=== PATIENT | male | born 1965 | race Caucasian/White ===

== ENCOUNTER 2023-11-05 14:35 | Outpatient (OUT) | payer OTHER, SELFPAY ==
--- NOTE | 2023-11-05 | XR_ITS ---
The [address] [address] Patient Name: AMISH HOLCOMB MRN: [id number] date: 1965 Sex: M Assigned Patient Location: Current Patient Location: Accession/Order Number: [id number] Exam Date: 11/05/2023 14:49 Report Date: 11/05/2023 16:17 At the request of: LEA HARRISON Procedure: XR foot CHARMAINE min 3V EXAMINATION: XR foot CHARMAINE min 3V HISTORY: BILATERAL FOOT PAIN COMPARISON: No relevant comparison available. FINDINGS: RIGHT FINDINGS: BONES: Normal. No significant arthropathy or acute abnormality. SOFT TISSUES: Negative. No visible soft tissue swelling. OTHER: Negative. LEFT FINDINGS: BONES: Normal. No significant arthropathy or acute abnormality. SOFT TISSUES: Negative. No visible soft tissue swelling. OTHER: Negative. XR/XR foot CHARMAINE min 3V IMPRESSION: RIGHT CONCLUSION: Normal LEFT CONCLUSION: Normal Electronically authenticated by: EVAN QUINTERO Date: 11/05/2023 16:17
== END 2023-11-05 14:36 | disposition home or self-care (01) ==
PROVIDERS: PCP Family Medicine; Visit Provider Podiatrist Foot & Ankle Surgery
DX: M79.671 Pain in right foot (principal); M79.672 Pain in left foot
CPT/HCPCS: 73630

== ENCOUNTER 2024-05-30 08:09 | Outpatient (OUT) | payer OTHER, SELFPAY ==
[2024-05-30 09:09] LABS: Basophils Absolute Auto 0.1 10^3/uL (0.0-0.1); Basophils Percent Auto 1.2 % (0.2-2.0); Eosinophils Absolute Auto 0.2 10^3/uL (0.0-0.7); Eosinophils Percent Auto 3.9 % (0.9-7.0); Hematocrit 50.5 % (42.0-54.0); Hemoglobin 17.3 g/dL (14.0-18.0); Immature Granulocytes Abs Auto 0.01 10^3/uL (0.00-0.03); Immature Granulocytes Pct Auto 0.2 % (0.0-0.5); Lymphocytes Absolute Auto 2.3 10^3/uL (1.2-3.8); Lymphocytes Percent Auto 44.3 % (20.5-60.0); Mean Corpuscular HGB Conc 34.3 g/dL (29.9-35.2); Mean Corpuscular Hemoglobin 30.8 pg (25.9-34.0); Mean Corpuscular Volume 89.9 fL (80.0-94.0); Mean Platelet Volume 11.2 fL (9.5-13.5); Monocytes Absolute Auto 0.6 10^3/uL (0.3-0.8); Neutrophils Percent Auto 39.4 % (43.0-75.0); Platelet Count 269 10^3/uL (150-450); Red Blood Count 5.62 10^6/uL (4.70-6.10); White Blood Count 5.1 10^3/uL (4.0-11.0)
[2024-05-30 09:23] LABS: Alanine Aminotransferase 35 U/L (16-63); Albumin Globulin Ratio 0.9; Albumin Level 3.8 g/dL (3.4-5.0); Alkaline Phosphatase 81 U/L (46-116); Anion Gap 15.1; Aspartate Amino Transferase 19 U/L (15-37); BUN Creatinine Ratio 17.3; Bilirubin Total 0.4 mg/dL (0.2-1.0); Calcium 9.3 mg/dL (8.5-10.1); Carbon Dioxide 27.1 mmol/L (21.0-32.0); Chloride 105 mmol/L (98-107); Chol HDL Ratio 5.4; Cholesterol 268 mg/dL (<=200); Estimated GFR (African America >60 (>=60 mL/min/1.73m^2); Estimated GFR (Non-African Ame >60 (>=60 mL/min/1.73m^2); Globulin 4.1 g/dL; Glucose 92 mg/dL (74-106); HDL Cholesterol 50 mg/dL (40-60); Potassium 4.2 mmol/L (3.5-5.1); Sodium 143 mmol/L (136-145); Total Protein 7.9 g/dL (6.4-8.2); Triglycerides 120 mg/dL (<=150)
[2024-05-30 10:04] LABS: Prostate Specific Antigen Scrn 0.71 ng/mL (<=4.00)
== END 2024-05-30 08:10 | disposition home or self-care (01) ==
PROVIDERS: PCP Family Medicine; Visit Provider Family Medicine
DX: Z00.00 Encounter for general adult medical examination without abnormal findings (principal); I10 Essential (primary) hypertension; M19.90 Unspecified osteoarthritis, unspecified site; Z12.5 Encounter for screening for malignant neoplasm of prostate
CPT/HCPCS: 36415; 80053; 80061; 85025; G0103

== ENCOUNTER 2025-06-25 10:11 | Observation (INO) | payer OTHER, SELFPAY ==
[2025-06-25] VITALS (38 sets, daily range): BP systolic 135–224; BP diastolic 76–118; PULSE 60–84; TEMP 36.6–36.9; O2SAT 92–96; BMI 28.3
--- NOTE | 2025-06-25 | XR_ITS ---
The [address] [address] Patient Name: AIMSH HOLCOMB MRN: [id number] date: 1965 Sex: M Assigned Patient Location: MS Current Patient Location: MS Accession/Order Number: [id number] Exam Date: 06/25/2025 14:02 Report Date: 06/25/2025 14:13 At the request of: CALLIE GRIER MD Procedure: XR foreign body eye CHARMAINE XR foreign body eye CHARMAINE 06/25/2025 2:07 PM SIGNS AND SYMPTOMS: ^Foreign body eye for MRI \S.br\ PROTOCOL: Frontal and lateral radiographs of the orbits COMPARISON: None FINDINGS: There is a 3 mm radiodense foreign body along the left zygomatic arch. No abnormal radiopaque foreign body is noted in the region of the orbits. The visualized paranasal sinuses are well aerated. XR/XR foreign body eye CHARMAINE IMPRESSION: There is a 3 mm radiodense foreign body along the left zygomatic arch. No abnormal radiopaque foreign body is noted in the region of the orbits. Impression dictated by: Dano Arana M.D. 06/25/2025 2:13 PM Dictation Location: [place] [address] Electronically authenticated by: [id number] Y Date: 06/25/2025 14:13
--- NOTE | 2025-06-25 10:28 | ECG_ITS ---
The [facility] Test Date: 2025-06-25 Pat Name: AMISH HOLCOMB Department: Room: - Gender: Male [employer]: : 1965 Requested By: [id number] Order Number: [id number] Reading MD: BILLY GARIBAY M.D. Measurements Intervals [place] Rate: 79 P: 45 FL: 166 QRS: 31 QRSD: 150 T: 0 QT: 396 QTc: 430 Interpretive Statements 1100 Sinus rhythm 2450 Right bundle branch block 4164 Twave abnormality, possible anterior ischemia 6220 Possible left atrial enlargement 9150 abnormal ECG No previous ECG available for comparison Electronically Signed On 06-25-2025 21:54:44 EST by BILLY GARIBAY M.D.
--- NOTE | 2025-06-25 10:29 | XR_ITS ---
The [place] [id number] Patient Name: AMISH HOLCOMB MRN: [id number] date: 1965 Sex: M Assigned Patient Location: ED.MAIN Current Patient Location: ED.MAIN Accession/Order Number: [id number] Exam Date: 06/25/2025 10:41 Report Date: 06/25/2025 10:52 At the request of: CALLIE GRIER MD Procedure: XR chest 1V Single view chest: CLINICAL HISTORY: poss cva COMPARISON: None FINDINGS: The heart is normal in size. The lungs are clear. The pulmonary vasculature is normal. Mediastinum and hilar regions are unremarkable. No pleural effusions are seen. Visualized bones are intact. XR/XR chest 1V IMPRESSION: NO ACUTE PROCESS. Impression dictated by: Blaze Stewart Jr., D.OAraseli 06/25/2025 10:52 AM Dictation Location: [place] [address] Electronically authenticated by: [id number] Y Date: 06/25/2025 10:52
--- NOTE | 2025-06-25 10:32 | CT_ITS ---
The [address] [address] Patient Name: AMISH HOLCOMB MRN: [id number] date: 1965 Sex: M Assigned Patient Location: ED.MAIN Current Patient Location: ER Accession/Order Number: [id number] Exam Date: 06/25/2025 10:41 Report Date: 06/25/2025 10:54 At the request of: CALLIE GRIER MD Procedure: CT head/brain wo con CT BRAIN WITHOUT CONTRAST: CLINICAL HISTORY: Aphasia yesterday for a few minutes COMPARISON: None cortical atrophy with chronic microvascular ischemic changes. TECHNIQUE: Contiguous axial unenhanced images were obtained through the brain. This CT exam was performed using one or more following dose reduction techniques: Automated exposure control, adjustment of the mA and/or kV according to patient size, or use of iterative reconstruction technique. FINDINGS: There is no evidence of midline shift, intra or extra-axial fluid collection, hemorrhage or CT evidence of stroke. Focal area of encephalomalacia involving the right occipital lobe suggestive of prior infarct. Posterior fossa appears unremarkable. Visualized intraorbital contents demonstrate no acute findings. Visualized paranasal sinuses are clear. The surrounding soft tissues are normal. CT/CT head/brain wo con IMPRESSION: NO ACUTE INTRACRANIAL ABNORMALITY. Impression dictated by: Blaze Stewart Jr., D.OAraseli 06/25/2025 10:54 AM Dictation Location[facility] Electronically authenticated by: [id number] Y Date: 06/25/2025 10:54
--- NOTE | 2025-06-25 10:32 | ED_ITS ---
HPI HPI - General Adult General Chief complaint: Recheck/Abnormal Lab/Rx Stated complaint: headache, confusion- last night Time Seen by Provider: 06/25/25 10:17 Source: patient Mode of arrival: walk-in History of Present Illness HPI narrative: 59-year-old male presented for an episode of aphasia that lasted for just a few minutes about 6:30 PM last night. At that time he had a headache which went away after some Tylenol. At no point did he have any motor weakness in his arms or legs or any sensory deficits. Nothing like this has happened before. He has a history of hypertension but does not take his medication. He did take it this morning. No fever or vomiting. Related Data Home Medications ?Medication ?Instructions ?Recorded ?Confirmed amlodipine 10 mg tablet 10 mg PO DAILY 06/25/2512/13 Allergies Allergy/AdvReac Type Severity Reaction Status Date / Time No Known Drug Allergies Allergy Verified 06/25/25 10:21 Review of Systems ROS Narrative A ten point review of systems is negative except as noted above. [facility] Medical History (Updated 06/25/25 @ 13:14 by Jack Page MD) HTN (hypertension) ?I10 - Essential (primary) hypertension (ICD-10) Social History Little interest or pleasure in doing things: not at all Feeling down, depressed, or hopeless: not at all Exam Narrative Exam Narrative: Nurses note and vital signs reviewed General:The patient appears well and in no apparent distress.Patient is resting comfortably on cart. Skin:Warm, dry, no pallor noted.There is no rash noted. Head:Normocephalic, atraumatic Eye: Normal conjunctiva, no drainage, EOMI. PERRL Ears, Nose, Mouth, and Throat: oral mucosa is moist. Nares patent. Cardiovascular:Regular Rate and Rhythm Respiratory:Patient is in no distress, no accessory muscle use, lungs are clear to auscultation, no wheezing, rales or rhonchi Back:non-tender GI: Soft and nontender Musculoskeletal: The patient has no evidence of calf tenderness, no pitting edema, symmetrical pulses noted bilaterally Neurological:A&O x4, normal speech; upper and lower extremity strength 5 out of 5 and symmetric. Sensation intact Psychiatric:Cooperative NIH score is 0 Constitutional Vital Signs, click to edit/add: Last Vital Signs Temp 98.5 F 06/25/25 10:16 Pulse 69 06/25/25 12:40 Resp 16 06/25/25 12:40 BP 156/95 H 06/25/25 12:30 Pulse Ox 93 L 06/25/25 12:40 O2 Del Method Room Air 06/25/25 10:42 Course Vital Signs Vital signs: Vital Signs Temperature 98.5 F 06/25/25 10:16 Pulse Rate 83 06/25/25 10:16 Respiratory Rate 18 06/25/25 10:16 Blood Pressure 224/108 H 06/25/25 10:16 Pulse Oximetry 95 06/25/25 10:16 Oxygen Delivery Method Room Air 06/25/25 10:16 Temperature 98.5 F 06/25/25 10:16 Pulse Rate 69 06/25/25 12:40 Respiratory Rate 16 06/25/25 12:40 Blood Pressure 156/95 H 06/25/25 12:30 Pulse Oximetry 93 L 06/25/25 12:40 Oxygen Delivery Method Room Air 06/25/25 10:42 Medical Decision Making [facility] Narrative Medical decision making narrative: The patient presented after having an episode of expressive aphasia yesterday. CT and CTA head and neck do not show any hemorrhage or critical stenosis. I spoke to the stroke team at [facility] who recommends admission here with aspirin and Plavix and an MRI and any further stroke workup that is needed. The patient did have an elevated blood pressure and he was given a small dose of labetalol which had good effect on his blood pressure. He is being admitted. Findings are discussed thoroughly with the patient and his . Differential Diagnosis Differential Diagnosis: CVA, TIA, hemorrhagic stroke, uncontrolled hypertension Lab Data Lab results reviewed: Yes I reviewed the patient's lab results Labs: Lab Results 06/25/25 Range/Units 10:33 WBC 5.6 (4.0-11.0) 10^3/uL RBC 5.73 (4.70-6.10) 10^6/uL Hgb 17.7 (14.0-18.0) g/dL Hct 50.9 (42.0-54.0) % MCV 88.8 (80.0-94.0) fL MCH 30.9 (25.9-34.0) pg MCHC 34.8 (29.9-35.2) g/dL RDW 12.1 (11.0-15.0) % Plt Count 265 (150-450) 10^3/uL MPV 10.7 (9.5-13.5) fL Neut % (Auto) 47.6 (43.0-75.0) % Lymph % (Auto) 36.7 (20.5-60.0) % [place] % (Auto) 12.0 (1.7-12.0) % Eos % (Auto) 2.2 (0.9-7.0) % Baso % (Auto) 1.3 (0.2-2.0) % Neut # (Auto) 2.7 (1.4-6.5) 10^3/uL Lymph # (Auto) 2.1 (1.2-3.8) 10^3/uL [place] # (Auto) 0.7 (0.3-0.8) 10^3/uL Eos # (Auto) 0.1 (0.0-0.7) 10^3/uL Baso # (Auto) 0.1 (0.0-0.1) 10^3/uL Abs Immat Gran (auto) 0.01 (0.00-0.03) 10^3/uL Imm/Tot Granulo (auto) 0.2 (0.0-0.5) % Sodium 141 (136-145) mmol/L Potassium 3.8 (3.5-5.1) mmol/L Chloride 102 (98-107) mmol/L Carbon Dioxide 29.2 (21.0-32.0) mmol/L Anion Gap 13.6 BUN 11.0 (7.0-18.0) mg/dL Creatinine 0.85 (0.70-1.30) mg/dL Est GFR ( Amer) >60 (>=60 mL/min/1.73m^2) Est GFR (Non-Af Amer) >60 (>=60 mL/min/1.73m^2) BUN/Creatinine Ratio 12.9 Glucose 92 (74-106) mg/dL Calcium 9.5 (8.5-10.1) mg/dL Imaging Data CT scan - head: Radiologist's impression: ITS Impressions Chest X-Ray 06/25/25 10:29 IMPRESSION: NO ACUTE PROCESS. Impression dictated by: Blaze Stewart Jr., D.O. 06/25/2025 10:52 AM Dictation Location: [facility] Electronically authenticated by: [id number] Y Date: 06/25/2025 10:[address] 06/25/25 10:32 IMPRESSION: NO ACUTE INTRACRANIAL ABNORMALITY. Impression dictated by: Blaze Stewart Jr., D.O. 06/25/2025 10:54 AM Dictation Location: [facility] Electronically authenticated by: [id number] Y Date: 06/25/2025 10:54 Head CTA 06/25/25 10:54 IMPRESSION: Moderate narrowing M1 segment left MCA. Please see axial image 139. Impression dictated by: Blaze Stewart Jr., D.O. 06/25/2025 12:14 PM Dictation Location: [facility] Electronically authenticated by: [id number] Y Date: 06/25/2025 12:14 Neck CTA 06/25/25 10:54 IMPRESSION: Moderate narrowing M1 segment left MCA. Please see axial image 139. Impression dictated by: Blaze Stewart Jr., D.O. 06/25/2025 12:14 PM Dictation Location: [facility] Electronically authenticated by: [id number] Y Date: 06/25/2025 12:14 ECG Data Attestation: I personally reviewed and interpreted this ECG as follows: (EKG on my interpretation shows sinus rhythm with a rate of 79 and a right bundle branch block) Critical Care Time Critical Care Time Critical Care Time: Yes Total Critical Care Time: 35 Attestation: Due to the high probability of sudden and clinically significant deterioration in the patient's condition he/she required the highest level of my preparedness to intervene urgently I provided critical care time including documentation time, medication orders and management, reevaluation, vital sign assessment, ordering and reviewing of lab tests, ordering and reviewing of x-ray studies, and admission orders. Aggregate critical care time is 35 minutes including only time during which I was engaged in work directly related to his/her care and did not include time spent treating other patients simultaneously. Discharge Plan Discharge Chief Complaint: Recheck/Abnormal Lab/Rx Clinical Impression: Brain TIA Patient Disposition: Admitted as Observation Time of Disposition Decision: 13:14 Condition: Good
[2025-06-25 10:41] LABS: Hematocrit 50.9 % (42.0-54.0); Hemoglobin 17.7 g/dL (14.0-18.0); Immature Granulocytes Abs Auto 0.01 10^3/uL (0.00-0.03); Immature Granulocytes Pct Auto 0.2 % (0.0-0.5); Lymphocytes Absolute Auto 2.1 10^3/uL (1.2-3.8); Mean Corpuscular HGB Conc 34.8 g/dL (29.9-35.2); Mean Corpuscular Hemoglobin 30.9 pg (25.9-34.0); Mean Corpuscular Volume 88.8 fL (80.0-94.0); Platelet Count 265 10^3/uL (150-450); Red Blood Count 5.73 10^6/uL (4.70-6.10); White Blood Count 5.6 10^3/uL (4.0-11.0)
[2025-06-25 10:50] LABS: Anion Gap 13.6; Blood Urea Nitrogen 11.0 mg/dL (7.0-18.0); Calcium 9.5 mg/dL (8.5-10.1); Carbon Dioxide 29.2 mmol/L (21.0-32.0); Chloride 102 mmol/L (98-107); Estimated GFR (African America >60 (>=60 mL/min/1.73m^2); Estimated GFR (Non-African Ame >60 (>=60 mL/min/1.73m^2); Glucose 92 mg/dL (74-106); Potassium 3.8 mmol/L (3.5-5.1); Sodium 141 mmol/L (136-145)
--- NOTE | 2025-06-25 10:54 | CT_ITS ---
The [address] [address] Patient Name: AMISH HOLCOMB MRN: [id number] date: 1965 Sex: M Assigned Patient Location: ER Current Patient Location: ER Accession/Order Number: [id number] Exam Date: 06/25/2025 11:00 Report Date: 06/25/2025 12:14 At the request of: CALLIE GRIER MD Procedure: CT angio neck CT angio head, CT angio neck 06/25/2025 11:12 AM SIGNS AND SYMPTOMS: ^Aphasia yesterday TECHNIQUE: Multi-detector CT angiography axial slices of the head and neck were obtained during intravenous administration of IV contrast material. Sagittal, coronal, and 3-D reconstructions were performed and viewed on a separate workstation. CT was performed with one or more of the following dose reduction techniques: Automated exposure control, adjustment of the mA and/or kV according to patient size, or use of iterative reconstruction technique. Stenoses were measured using the NASCET criteria. COMPARISON: CT brain performed earlier today. FINDINGS: CTA HEAD: Posterior inferior cerebellar arteries : patent Basilar artery: patent Superior cerebellar arteries: patent Posterior cerebral arteries: patent Intracranial segments of the internal carotid arteries: Mild constipation without critical stenosis or occlusion. MCA: Right MCA appears unremarkable. There appears to be moderate narrowing involving the M1 segment of the left middle cerebral artery. Distal segments appear unremarkable. DENA: patent Anterior Communicating artery: patent Posterior Communicating arteries: Not visualized. CTA NECK: Vertebral arteries : Patent. Normal origins. Common Carotid arteries: patent Internal Carotid arteries: Mild calcification involving the carotid bulbs. ICAs appear unremarkable. No significant soft tissue swelling. No soft tissue swelling or lymphadenopathy. Visualized lung apices are clear. Osseous structures demonstrate cervical spondylosis. CT/CT angio head IMPRESSION: Moderate narrowing M1 segment left MCA. Please see axial image 139. Impression dictated by: Blaze Stewart Jr., D.O. 06/25/2025 12:14 PM Dictation Location: [place] [address] Electronically authenticated by: [id number] Y Date: 06/25/2025 12:14
--- NOTE | 2025-06-25 10:54 | CT_ITS ---
The [address] [address] Patient Name: AMISH HOLCOMB MRN: [id number] date: 1965 Sex: M Assigned Patient Location: ER Current Patient Location: ER Accession/Order Number: [id number] Exam Date: 06/25/2025 11:00 Report Date: 06/25/2025 12:14 At the request of: CALLIE GRIER MD Procedure: CT angio neck CT angio head, CT angio neck 06/25/2025 11:12 AM SIGNS AND SYMPTOMS: ^Aphasia yesterday TECHNIQUE: Multi-detector CT angiography axial slices of the head and neck were obtained during intravenous administration of IV contrast material. Sagittal, coronal, and 3-D reconstructions were performed and viewed on a separate workstation. CT was performed with one or more of the following dose reduction techniques: Automated exposure control, adjustment of the mA and/or kV according to patient size, or use of iterative reconstruction technique. Stenoses were measured using the NASCET criteria. COMPARISON: CT brain performed earlier today. FINDINGS: CTA HEAD: Posterior inferior cerebellar arteries : patent Basilar artery: patent Superior cerebellar arteries: patent Posterior cerebral arteries: patent Intracranial segments of the internal carotid arteries: Mild constipation without critical stenosis or occlusion. MCA: Right MCA appears unremarkable. There appears to be moderate narrowing involving the M1 segment of the left middle cerebral artery. Distal segments appear unremarkable. DENA: patent Anterior Communicating artery: patent Posterior Communicating arteries: Not visualized. CTA NECK: Vertebral arteries : Patent. Normal origins. Common Carotid arteries: patent Internal Carotid arteries: Mild calcification involving the carotid bulbs. ICAs appear unremarkable. No significant soft tissue swelling. No soft tissue swelling or lymphadenopathy. Visualized lung apices are clear. Osseous structures demonstrate cervical spondylosis. CT/CT angio neck IMPRESSION: Moderate narrowing M1 segment left MCA. Please see axial image 139. Impression dictated by: Blaze Stewart Jr., D.O. 06/25/2025 12:14 PM Dictation Location: [place] [address] Electronically authenticated by: [id number] Y Date: 06/25/2025 12:14
--- OUTSIDE RECORDS SUMMARY | 2025-06-25 10:56 | XMS_ITS | CCD ---
Author Organization [facility] Care Team Providers Care Armor Senior Sergeant Name Role Phone PHYSICIAN, DEFAULT Unavailable Unavailable PHYSICIAN, DEFAULT Unavailable Unavailable JENNIFER FELTON Unavailable Unavailable JENNIFER FELTON Unavailable Unavailable JENNIFER FELTON Unavailable Unavailable EVAN QUINTERO V Unavailable Unavailable JENNIFER FELTON Unavailable Unavailable Jennifer Felton Unavailable Allergies Allergy ClassificationReported Allergen(s)Allergy TypeDate of OnsetReaction(s) Facility (1 source)IodineDrug AllergyPolySuiteUniversity of Missouri Health [facility] Accounting [employer] [place] Other Medications Current Medications MedicationDrug Class(es)DatesSig (Normalized)Sig (Original)amoxicillin 875 mg / clavulanate 125 mg oral tablet (1 source)Penicillin-class AntibacterialStart: 41-45-4034heho 1 tablet by mouth every twelve hoursAmoxicillin-Pot Clavulanate 875-125 MG 1 tablet Orally every 12 hrs for 10 day(s) Sep, Active Problems Problem ClassificationProblemDateDocumented DateEpisodic/ChronicEssential hypertension (5 sources)Essential (primary) hypertension; Translations: [Essential hypertension]Onset: 09-77-6617GxkoaodRcich upper respiratory infections (1 source)Acute maxillary sinusitis, unspecifiedEpisodic Results Test NameValueInterpretationReference RangeFacilityPROF CHEM 8 (BAS METB)on 18-46-3011Gwzxz gap14.1 mmol/LNormalThe [facility]ike Community HospitalComment on above: Performed By: #### BMP ####[facility] [address] [place], [place] [address]Fmxiqa KarenBUN/Creatinine Ratio20.3 mg/mgNormalThe [facility]ike Community HospitalComment on above:Performed By: #### BMP ####[facility] [address] [place] [address] AxatoRardmch12.1 mg/dL Normal8.4-10.2The [facility] Community HospitalComment on above:Performed By: #### BMP ####[facility] [address] [place] [address] LozpvHjihvigb70 mmol/HHurcab78-775Pvh [facility] HospitalComment on above: Performed By: #### BMP ####[facility] [address] [place] [address] HdykzUH760.0 mmol/EMfkyxg16.0-30.0The [facility] HospitalComment on above:Performed By: #### BMP ####[facility] [address] [place] [address] KarenCreatinine0.75 mg/dLNormal0.66-1.25The [facility] HospitalComment on above:Performed By: #### BMP ####[facility] [address] [place] [address] KareneGFR (non-black)mL/min/{1.73_m2}Normal>=60The [facility] HospitalComment on above:Performed By: #### BMP ####[facility] [address] [place] [address] KarenGlucose mass conc89 mg/nZQpnqev06-815Wbz [facility] HospitalComment on above:Performed By: #### BMP ####[facility] [address] [place] [address] KarenPotassium molar conc4.1 mmol/LNormal3.4-5.0The [facility] HospitalComment on above:Performed By: #### BMP ####[facility] [address] [place] [address] UxzrzPldaug838 mmol/XZfrkcs686-438Euu [facility] HospitalComment on above:Performed By: #### BMP ####[facility] [address] [place] [address] KarenUrea krweqzer01.0 mg/dLNormal9.0-20.0The [facility] HospitalComment on above:Performed By: #### BMP ####[facility] [address] [place], [place] [address]Ekkneo Jorge A KIDNEYSon 00-89-2709LY BEPGQPT8163 [place] [address] Patient: AMISH HOLCOMB Exam Date: 09/13/2017DOB: 1965 Gender:M : DR JENNIFER FELTON Admission #: [id number] : Order #: [id number] HERE TO VIEW EXAM RADIOLOGY REPORT PROCEDURE: ULTRASOUND KIDNEYS COMPARISON: None. INDICATIONS: ESSENTIAL (PRIMARY) HYPERTENSION TECHNIQUE: Ultrasound examination was performed of the kidneys and bladder. FINDINGS: RIGHT KIDNEY: Normal size, contour and echotexture. No focal cortical mass hydronephrosis or obstructing nephrolithiasis. Color Doppler demonstrates blood flow within the kidney. Duplex Doppler demonstrates normal waveform and flow within the kidney.Kidney: 11.5 x 6.8 x 5.4 cm LEFT KIDNEY: Normal size, contour and echotexture. No focal cortical mass, hydronephrosis or obstructing nephrolithiasis. Mild pelviectasis. Color Doppler demonstrates blood flow within the kidney. Duplex Doppler demonstrates normal waveform and flow within the kidney. Kidney: 12.6 x 5.1 x 4.9 cm BLADDER: No visible wall thickening, mass, or calculus. Right Renal Artery (PSV/EDV) Left Renal Artery (PSV/EDV)Proximal: Not seen Proximal: Not seenMid: 99.79 cm/s 47.95 cm/s Mid: 84.36 cm/s 5.84 cm/sDistal: 58.32 cm/s 24.62 cm/s Distal: 125.70 cm/s 47.95 cm/s Right Arcuate Artery (PSV/EDV) Left Arcuate Artery (PSV/EDV)Superior: 40.1 12.3 Superior: 32.1 14.8Middle: 48.621.4 Middle: 34.9 11.1Inferior: 34.3 12.3 Inferior: 56.8 23.9 Aorta (PSV/EDV) 102.4 16.8 CONCLUSION: 1. Normal flow velocities in the visualized renal arteries, the proximal bilateral renal arteries were not visualized Dictated by: Evan Quintero M.D. on 09/13/2017 at 09:26 Approved by: Evan Quintero M.D. on 09/13/2017 at 09:30[facility] Vital Signs Date TimeVital SignValuePerforming KbywkacvtOmoprfib16-68-3252 09:45-0400Body xqhyqn002.72 cmJennifer Felton Other [employer] Other 03-24-2023 09:45-0400Body mass index (BMI) [Ratio] 30.41 kg/n7RwmiwiJennifer Felton Other [employer] Other 03-24-2023 09:45-0400Body jcqubv89.72 kgJennifer Felton Other [employer] Other 03-24-2023 09:45-0400Diastolic blood rjehxtts09 mm[Hg] Jennifer Felton Other [employer] Other 03-24-2023 09:45-8930AlZ5% (BldA) [Mass fraction]97 % Jennifer Felton Other [employer] Other 03-24-2023 09:45-0400Systolic blood ydscaphb848 mm[Hg] Jennifer Felton Other [employer] Other Encounters Encounter DateEncounter TypeCare ProviderFacilityStart: 10-12-2022 End: 18-50-3635zqkxlhnywlWdlrsb Braun Other [employer] Other Start: 71-69-0878Wkzsmc outpatient new 30 minutes Jennifer McmahonAtrium Health ClinicStart: 10-04-2017 End: 35-52-6435RnpyvnpjyzSLVCKJZ PHYSICIANFacility:[facility]MCStart: 09-13-2017 End: 58-83-5835SzmjbloucqTMNLWO E BRAUNFacility:H1 Payers DatePayer CategoryPayerPolicy [id number] Health [id number] Private Health [id number] Social History DateTypeDetailFacilityUnknown if ever smokedRaleigh Accounting [employer] [place] Other Sex Assigned At BirthSex Assigned At [facility] HospitalStreamweaver Other Evaluation note 10-12-2022 Note Date & OfmbMmndMtstfuhm65-64-2005 Evaluation note* Encounter Date Diagnosis Assessment Notes Treatment Notes Treatment Clinical Notes Sep, Acute non-recurrent maxillary si nusitis (ICD-10 - J01.00) Sinus infections can be triggered by a secondary infection from a viral URI or even seasonal allergies. Take medications as directed. Use saline nasal spray prior to presciption nasal spray. Take medications as directed, and complete all doses of medication even if you start to feel better. Patientadvised to follow up with PCP if symptoms persist or worsen. Patient verbalized understanding and agreement with treatment plan. [employer] Other History general Narrative - Reported Note Date & TypeNoteFacilityHistory general Narrative - Reported* Type Description Date Medical History Essential hypertension [employer] Other Summary Purpose Family History No Family History Records FoundNo Family History Records Found Advance Directives No Advanced Directives Records FoundNo Advanced Directives Records Found Additional Source Comments INFORMATION SOURCE (unrecogn ized section and content) DATE CREATED AUTHOR 01/10/2018 [facility] DATE CREATED AUTHOR AUTHOR'S ORGANIZ ATION 01/10/2018 [facility] (unrecognized sect ion and content) No Status Records Found REASON FOR VISIT (unrecogniz ed section and content) head cold FOR RECORDS PERTAINING TO PATIENTS WHO ARE OR HAVE BEEN ENROLLED IN A CHEMICAL DEPENDENCY/SUBSTANCEABUSE PROGRAM, SOME INFORMATION MAY BE OMITTED. This clinical summary was aggregated from multiple sources. Caution should be exercised in using it in the provision of clinical care. This summary normalizes information from multiple sources, and as a consequence, information in this document may materially change the coding, format and clinical context of patient data. In addition, data may be omitted in some cases. CLINICAL DECISIONS SHOULD BE BASED ON THE PRIMARY CLINICAL RECORDS. [facility] [employer] [facility]. provides no warranty or guarantee of the accuracy or completeness of information in this document.
[2025-06-25] MEDS: LABETALOL HCL 20 MG/4 ML SYRINGE 10 MG IVP ×2 (11:14→19:30)
[2025-06-25] MEDS: ASPIRIN 325 MG TABLET PO (13:18)
[2025-06-25] MEDS: CLOPIDOGREL BISULFATE 75 MG TABLET 300 MG PO (13:18)
--- NOTE | 2025-06-25 13:41 | MR_ITS ---
[place] [address] Patient Name: AMISH HOLCOMB MRN: [id number] date: 1965 Sex: M Assigned Patient Location: [place] Current Patient Location: [place] Accession/Order Number: [id number] Exam Date: 06/25/2025 14:00 Report Date: 06/25/2025 15:33 At the request of: LIDIA DUGAN MD Procedure: MR head/brain wo con EXAMINATION: MRI OF THE BRAIN WITHOUT CONTRAST CLINICAL HISTORY: TIA COMPARISON: CT angiogram 12/31/2024 TECHNIQUE: Multiecho, multiplanar imaging of the brain was performed without contrast. No restricted diffusion. Artifact from the metallic foreign body left-sided both buccal regions does degrade imaging quality. Ventricles and sulci normal size and configuration for the patient's age. No shift of midline structures. Basal cisterns are patent. Minimal periventricular subcortical T2 prolongation identified suggestive of of chronic small vessel ischemic disease. Remote lacunar stroke stroke involving the left posterior frontal periventricular white matter central band of Gliosis. Mild paranasal sinus disease. MR/MR head/brain wo con IMPRESSION: Minor microvascular changes. No evidence acute stroke or acute intracranial process by MRI. Impression dictated by: Vitor Turner M.D. 06/25/2025 3:33 PM Dictation Location: [place] [address] Electronically authenticated by: [id number] Y Date: 06/25/2025 15:33
--- NOTE | 2025-06-25 13:41 | CA_ITS ---
Patient Name: AMISH HOLCOMB MR#: [id number] : 1965 Exam Date: 06/25/2025 Ordering Doctor: LIDIA DUGAN ECHOCARDIOGRAM REPORT PROCEDURE: CA ECHO DOPPLER COMPLETE INDICATIONS: TIA COMPARISON: None. DESCRIPTION: COMPLETE ECHOCARDIOGRAM Real-time transthoracic echocardiography with 2D, M-mode, spectral and color flow Doppler performed. QUALITY: Technical quality was good. LEFT VENTRICLE: Normal chamber size. Moderate concentric left ventricular hypertrophy. Global left ventricular systolic function is normal. Visual estimation of left ventricular ejection fraction is 65-70%. Myocardial strain is normal at -17.5%. LV EF: Normal left ventricular ejection fraction, (>55%). DIASTOLIC: Grade I diastolic dysfunction. ATRIAL SEPTUM: LEFT ATRIUM: Mild dilatation. RIGHT ATRIUM: Normal chamber size. RIGHT VENTRICLE: Normal chamber size. Normal right ventricular systolic function. TRICUSPID VALVE: Normal mobility and thickness. No stenosis with trivial regurgitation. Unable to assess right-sided pressures due to lack of measurable tricuspid regurgitation. MITRAL VALVE: Normal mobility and thickness. No evidence of mitral valve stenosis. There is no mitral annular calcification. Trivial mitral regurgitation. AORTIC VALVE: Normal trileaflet appearance. Mildly calcified aortic valve. Normal leaflet mobility. No evidence of aortic valve stenosis. Trivial aortic regurgitation. AORTIC ROOT: Normal diameter and appearance. The aortic root measures 3.6 cm. The ascending aorta is normal in size measuring 3.2 cm. PULMONIC VALVE: Normal thickness and mobility. No stenosis. No regurgitation. PERICARDIUM: No evidence of pericardial effusion. IVC: Collapses with inspirations. The IVC is normal in size measuring 1.7 cm. PLEURA: CONCLUSION: 1. Moderate concentric left ventricular hypertrophy with normal systolic function. Estimated LVEF is 65 to 70%. 2. Normal right ventricular size and systolic function. 3. Mild diastolic dysfunction. 4. No significant valvular dysfunction. 5. Unable to assess right-sided pressures due to lack of measurable tricuspid regurgitation. Adult Echocardiography Procedure Report Left Ventricle LVEDD (3.7 - 5.6 cm): 4.60 cm LVESD (2.2 - 4.0 cm): 2.98 cm LVIVS thickness (0.6 - 1.2 cm): 1.47 cm LVPW thickness (0.5 - 1.0 cm): 1.36 cm e': 0.05 m/s E - e': 12.15 LVOT Max Gradient: 3.23 mm[Hg] LVOT Area (cm2): 0.90 m/s Peak Velocity (LVOT): 0.90 m/s Mean Velocity (LVOT): 0.63 m/s LVOT Diameter 2.23 cm Left Ventricular Ejection Fraction: 65-70 % Left Atrium LA Volume Index (2D A2C): 35.29 ml/m2 Left Atrium Systolic Dimension: 4.24 cm Mitral Valve MV E to A Ratio: 0.59 Mitral Valve A-Wave Peak Velocity: 0.95 m/s Mitral Valve E-Wave Peak Velocity: 0.56 m/s Right Ventricle RV Internal Diastolic Dimension: 3.76 cm Aorta AO Root Diam: 3.61 cm Ascending Ao Diam: 3.25 cm Aortic Valve AoV Area (Peak Ramana): 2.17 cm2, 2.19 cm2 AoV Area (VTI): 2.56 cm2, 2.71 cm2 Peak Velocity(Antegrade Flow): 1.60 m/s, 1.62 m/s Peak Gradient(Antegrade Flow): 10.18 mm[Hg], 10.55 mm[Hg] Mean Velocity(Antegrade Flow): 1.06 m/s, 1.10 m/s Mean Gradient(Antegrade Flow): 5.26 mm[Hg], 5.61 mm[Hg] Velocity Time Integral: 29.57 cm, 32.96 cm Tricuspid Valve Peak Velocity (Regurgitant Flow): 1.61 m/s, 1.60 m/s Pulmonic Valve Peak Velocity: 0.87 m/s Peak Gradient: 3.79 mm[Hg], 2.30 mm[Hg] Right Atrium Right Atrium Systolic Pressure: 56.86 ml, 56.86 ml Dictated by: Chris Jaimes M.D. on 06/25/2025 at 18:25 Approved by: Chris Jaimes M.D. on 06/25/2025 at 18:30
--- NOTE | 2025-06-25 13:49 | CM.NOTE ---
CM called MRI to update that per Dr. Allen pt will need MRI done today. Called Cardiopulmonary for echo to be completed today and notified [facility] Starr that echo would need read today. [place] txt sent to Dr. Allen that all testing would be completed today.
--- OUTSIDE RECORDS SUMMARY | 2025-06-25 14:05 | XMS_ITS | CCD ---
Author Organization [facility] Care Team Providers Care Law Firm Receptionist Name Role Phone PHYSICIAN, DEFAULT Unavailable Unavailable PHYSICIAN, DEFAULT Unavailable Unavailable JENNIFER FELTON Unavailable Unavailable JENNIFER FELTON Unavailable Unavailable JENNIFER FELTON Unavailable Unavailable EVAN QUINTERO V Unavailable Unavailable JENNIFER FELTON Unavailable Unavailable Jennifer Felton Unavailable Allergies Allergy ClassificationReported Allergen(s)Allergy TypeDate of OnsetReaction(s) Facility (1 source)IodineDrug AllergyChompAudrain Medical Center [employer] Other Medications Current Medications MedicationDrug Class(es)DatesSig (Normalized)Sig (Original)amoxicillin 875 mg / clavulanate 125 mg oral tablet (1 source)Penicillin-class AntibacterialStart: 98-80-6916qvwu 1 tablet by mouth every twelve hoursAmoxicillin-Pot Clavulanate 875-125 MG 1 tablet Orally every 12 hrs for 10 day(s) Sep, Active Problems Problem ClassificationProblemDateDocumented DateEpisodic/ChronicEssential hypertension (5 sources)Essential (primary) hypertension; Translations: [Essential hypertension]Onset: 92-65-0035RcjzjvaPysgi upper respiratory infections (1 source)Acute maxillary sinusitis, unspecifiedEpisodic Results Test NameValueInterpretationReference RangeFacilityPROF CHEM 8 (BAS METB)on 16-15-4557Pudbg gap14.1 mmol/LNormalThe [facility]riners HospitalComment on above: Performed By: #### BMP ####[facility] [address] [place], [place] [address]Aolmsx KarenBUN/Creatinine Ratio20.3 mg/mgNormalThe [facility]riners HospitalComment on above:Performed By: #### BMP ####[facility] [address] [place] [address] GriubZkjqtbk18.1 mg/dL Normal8.4-10.2The [facility]riners HospitalComment on above:Performed By: #### BMP ####[facility] [address] [place] [address] KypdrHjjicbrj68 mmol/LWbndah99-145Vbu [facility] HospitalComment on above: Performed By: #### BMP ####[facility] [address] [place] [address] QdxmhWO894.0 mmol/XVnjjlo48.0-30.0The [facility] HospitalComment on above:Performed By: #### BMP ####[facility] [address] [place] [address] KarenCreatinine0.75 mg/dLNormal0.66-1.25The [facility]riners HospitalComment on above:Performed By: #### BMP ####[facility] [address] [place] [address] KareneGFR (non-black)mL/min/{1.73_m2}Normal>=60The [facility]riners HospitalComment on above:Performed By: #### BMP ####[facility] [address] [place] [address] KarenGlucose mass conc89 mg/lPUaxyuw32-419Uut [facility] HospitalComment on above:Performed By: #### BMP ####[facility] [address] [place] [address] KarenPotassium molar conc4.1 mmol/LNormal3.4-5.0The [facility]riners HospitalComment on above:Performed By: #### BMP ####[facility] [address] [place] [address] StzuoHuapvm949 mmol/WCyxfhx776-628Xbi [facility] HospitalComment on above:Performed By: #### BMP ####[facility] [address] [place] [address] KarenUrea miuxlyry86.0 mg/dLNormal9.0-20.0The [facility]riners HospitalComment on above:Performed By: #### BMP ####[facility] [address] [place], [place] [address]God[employer] Jorge A KIDNEYSon 85-38-4329OE JSAYBYI[address] [place] [address] Patient: AMISH HOLCOMB Exam Date: 09/13/2017DOB: 1965 Gender:M : DR JENNIFER FELTON Admission #: [id number] : Order #: [id number] HERE TO VIEW EXAM RADIOLOGY REPORT PROCEDURE: [...] by: Evan Quintero M.D. on 09/13/2017 at 09:30[facility] Vital Signs Date TimeVital SignValuePerforming RmmdemhjaQhunvtod56-43-9557 09:45-0400Body yxtqsq866.72 cmJennifer Felton Other [employer] Other 03-24-2023 09:45-0400Body mass index (BMI) [Ratio] 30.41 kg/b7BfstguJennifer Felton Other [employer] Other 03-24-2023 09:45-0400Body sysltk64.72 kgJennifer Felton Other [employer] Other 03-24-2023 09:45-0400Diastolic blood dcryqnqw32 mm[Hg] Jennifer Felton Other [employer] Other 03-24-2023 09:45-2238PrI7% (BldA) [Mass fraction]97 % Jennifer Felton Other [employer] Other 03-24-2023 09:45-0400Systolic blood vyrboxnr473 mm[Hg] Jennifer Felton Other [employer] Other Encounters Encounter DateEncounter TypeCare ProviderFacilityStart: 10-12-2022 End: 29-89-6993jfwjrixhgaGcnxvi Braun Other [employer] Other Start: 96-79-3250Cvtoav outpatient new 30 minutes Jennifer McmahonUnc Health Johnston ClinicStart: 10-04-2017 End: 70-12-8334AuseqzyaxaLXJWEAP PHYSICIANFacility:UTMCStart: 09-13-2017 End: 69-72-8060MjhnqdtxiqJXDOBR E BRAUNFacility:H1 Payers DatePayer CategoryPayerPolicy [id number] Health [id number] Private Health [id number] Social History DateTypeDetailFacilityUnknown if ever smokedEcho [employer] Other Sex Assigned At BirthSex Assigned At [facility]Next[facility] Other Evaluation note 10-12-2022 Note Date & PqiqKpaiYzywmmwv21-76-9566 Evaluation note* Encounter Date Diagnosis Assessment Notes [...] verbalized understanding and agreement with treatment plan. [facility] Other History general Narrative - Reported Note Date & TypeNoteFacilityHistory general Narrative - Reported* Type Description Date Medical History Essential hypertension [facility] Other Summary Purpose Family History No Family History Records FoundNo Family History Records Found Advance Directives No Advanced Directives Records FoundNo Advanced Directives Records Found Additional Source Comments INFORMATION SOURCE (unrecogn ized section and content) DATE CREATED AUTHOR 01/10/2018 [facility] DATE CREATED AUTHOR AUTHOR'S ORGANIZ ATION 01/10/2018 [facility] (unrecognized sect ion and content) No [...] BE BASED ON THE PRIMARY CLINICAL RECORDS. [facility]. provides no warranty or guarantee of the accuracy or completeness of information in this document.
--- NOTE | 2025-06-25 15:45 | SWNOTE1 ---
SW met with pt, and 2 other family members in room. Pt voiced he is feeling great. Pt just had some issues with speech and then had a headache after that. He voiced they are doing a work up on him. Pt was independent prior to this and has no anticipated discharge needs at this time. SW to follow as needed.
[2025-06-25] MEDS: AMLODIPINE BESYLATE 5 MG TABLET PO (15:48)
--- NOTE | 2025-06-25 16:00 | CM.NOTE ---
PT will be in around 1700 to evaluate patient
[2025-06-25] MEDS: HYDRALAZINE HCL 20 MG/ML VIAL 10 MG IVP (16:55)
[2025-06-25] MEDS: ATORVASTATIN CALCIUM 40 MG TABLET 80 MG PO (21:13)
[2025-06-26] VITALS (9 sets, daily range): BP systolic 122–159; BP diastolic 74–89; PULSE 53–76; TEMP 36.4–36.6; O2SAT 92–93
[2025-06-26 06:51] LABS: Hematocrit 48.2 % (42.0-54.0); Hemoglobin 16.6 g/dL (14.0-18.0); Immature Granulocytes Abs Auto 0.01 10^3/uL (0.00-0.03); Immature Granulocytes Pct Auto 0.2 % (0.0-0.5); Lymphocytes Absolute Auto 1.7 10^3/uL (1.2-3.8); Mean Corpuscular HGB Conc 34.4 g/dL (29.9-35.2); Mean Corpuscular Hemoglobin 30.9 pg (25.9-34.0); Mean Corpuscular Volume 89.8 fL (80.0-94.0); Platelet Count 247 10^3/uL (150-450); Red Blood Count 5.37 10^6/uL (4.70-6.10); White Blood Count 5.0 10^3/uL (4.0-11.0)
[2025-06-26 07:12] LABS: Alanine Aminotransferase 34 U/L (16-63); Albumin Globulin Ratio 0.9; Albumin Level 3.5 g/dL (3.4-5.0); Alkaline Phosphatase 86 U/L (46-116); Anion Gap 13.6; Aspartate Amino Transferase 20 U/L (15-37); Blood Urea Nitrogen 15.0 mg/dL (7.0-18.0); Calcium 9.1 mg/dL (8.5-10.1); Carbon Dioxide 27.1 mmol/L (21.0-32.0); Chloride 102 mmol/L (98-107); Cholesterol 271 mg/dL (<=200); Estimated GFR (African America >60 (>=60 mL/min/1.73m^2); Estimated GFR (Non-African Ame >60 (>=60 mL/min/1.73m^2); Globulin 4.1 g/dL; Glucose 90 mg/dL (74-106); HDL Cholesterol 42 mg/dL (40-60); Magnesium 2.3 mg/dL (1.8-2.4); Potassium 3.7 mmol/L (3.5-5.1); Sodium 139 mmol/L (136-145); Total Protein 7.6 g/dL (6.4-8.2); Triglycerides 123 mg/dL (<=150); VLDL CHOLESTEROL 24.6 mg/dL
--- NOTE | 2025-06-26 08:00 | ECG_ITS ---
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 Measurements Intervals Itmann Rate: 58 P: 63 MD: 173 QRS: 66 QRSD: 167 T: 17 QT: 459 QTc: 451 Interpretive Statements SINUS BRADYCARDIA RIGHT BUNDLE BRANCH BLOCK [120+ ms QRS DURATION, UPRIGHT V1, 40+ ms S IN I/aVL/V4/V5/V6] MODERATE T-WAVE ABNORMALITY, CONSIDER LATERAL ISCHEMIA [-0.1+ mV T WAVE IN I/aVL/V5/V6] Abnormal ECG Compared to ECG 06/25/2025 10:23:43 T-wave abnormality now present Possible ischemia still present Electronically Signed On 06-26-2025 15:07:19 EST by BILLY GARIBAY M.D.
[2025-06-26] MEDS: ASPIRIN 325 MG TABLET PO (09:11)
[2025-06-26] MEDS: AMLODIPINE BESYLATE 5 MG TABLET PO (09:11)
--- NOTE | 2025-06-26 09:35 | P.HP_ITS ---
HPI H&P: HPI History of Present Illness Chief complaint: headache, confusion- last night, TIA Narrative: Mr. Patrick is a 59-year-old gentleman who came to the emergency room several hours after he had developed transient expressive aphasia. Patient stated that this episode lasted for about less than 5 minutes. He could not articulate what he was trying to say. His reported that his speech was garbled. This resolved spontaneously. Patient denied any previous similar episode. He denies any weakness or numbness involving his face, arms and legs. Please refer to the emergency room record for details. Patient had CVA workup. ER physician I discussed this case with stroke team who recommended dual antiplatelet therapy as well as MRI of the brain. This morning the patient is asymptomatic. Denies any chest pain. No slurred speech. No confusion or disorientation. No weakness or numbness. Opioid HPI Opioid Management Most Recent Pain and Opioid Data: Last Pain Assessment Today, 09:00 Last ORT Total Score 0 06/25/25, 15:04 Last ORT Risk Category Low Risk 06/25/25, 15:04 Review of Systems ROS Status of ROS 10 or more systems reviewed and unremark able except as noted in history and below [facility] Medical History (Updated 06/25/25 @ 13:14 by Jack Page MD) HTN (hypertension) ?I10 - Essential (primary) hypertension (ICD-10) Social History Highest level of school completed/degree received: Bachelor's degree Little interest or pleasure in doing things: not at all Feeling down, depressed, or hopeless: not at all Gender Identity: male Meds Home Medications and Allergies Home Medications ?Medication ?Instructions ?Recorded ?Confirmed ?Type amlodipine 5 mg tablet 5 mg PO DAILY #30 tabs 06/26 Rx aspirin 81 mg tablet,delayed 81 mg PO DAILY #60 tabs 1 08/27/24 Rx release atorvastatin 80 mg tablet (Lipitor) 80 mg PO QPM #60 t abs 06/26/25 Rx clopidogrel 75 mg tablet (Plavix) 75 mg PO DAILY #21 t abs 06/26/25 Rx losartan 50 mg-hydrochlorothiazide 1 tab PO DAILY #30 tabs 06/26/25 Rx 12.5 mg tablet (Hyzaar) Allergies Allergy/AdvReac Type Severity Reaction Status Date / Time No Known Drug Allergies Allergy Verified 06/25/25 10:21 Exam Narrative Exam Narrative: [pt is awake and alert. oriented to place, time and person HEENT: [place] conjunctiva and NL buccal mucosa Neck: Supple, no tenderness Endocrine: No Thyromegaly. Vascular: No JVD or carotid bruit. Lymphatic: No cervical lymphadenopathy. Chest: CTA no DTP. Heart RRR, no extra sound or murmur. Abd: Soft, no tenderness, no rebound and no rigidity. Increase abd girth therefore clinically I could not exclude the possibility of intra abd mass or organomegaly. LE: No cyanosis or clubbing, no varices or edema. Neuro: A A O. Nl speech, comprehension and attention. Nl and symetrical motor and tone examination through out. Normal concentration, normal speech, normal facial symmetry. No nystagmus. No ataxia. No abnormalities in finger nose testing. No abnormalities in gait. []] Constitutional Vital Signs, click to edit/add: Last Vital Signs Temp 97.5 F L 06/26/25 07:36 Pulse 76 06/26/25 08:04 Resp 20 06/26/25 07:36 BP 159/89 H 06/26/25 07:36 Pulse Ox 92 L 06/26/25 07:36 O2 Del Method Room Air 06/26/25 07:36 Results Labs Labs: Short CBC 06/25/25 06/26/25 Range/Units 10:33 05:22 WBC 5.6 5.0 (4.0-11.0) 10^3/uL Hgb 17.7 16.6 (14.0-18.0) g/dL Hct 50.9 48.2 (42.0-54.0) % Plt Count 265 247 (150-450) 10^3/uL BMP 06/25/25 06/26/25 10:33 05:22 Sodium 141 139 Potassium 3.8 3.7 Chloride 102 102 Carbon Dioxide 29.2 27.1 BUN 11.0 15.0 Creatinine 0.85 0.93 Glucose 92 90 Calcium 9.5 9.1 Liver Function 06/26/25 Range/Units 05:22 Total Bilirubin 0.4 (0.2-1.0) mg/dL AST 20 (15-37) U/L ALT 34 (16-63) U/L Alkaline Phosphatase 86 (46-116) U/L Albumin 3.5 (3.4-5.0) g/dL Assessment and Plan Assessment and Plan (1) Brain TIA: Plan TIA versus hypertensive encephalopathy. Hypertensive urgency. This could be the primary insult versus secondary to a TIA. Emergency room physician I discussed this case with stroke team who recommended the dual antiplatelet therapy. CT head is negative. CTA of the neck does not show any significant vascular compromise. Mild calcification involving the carotid bulbs. CTA of the head showed moderate narrowing of M1 segment of the left MCA Telemetry monitoring does not show any cardiac dysrhythmia Echocardiogram does not show coagulopathy or significant valvular disease. EF is 65%. Mild diastolic dysfunction Complete resolution of his symptoms. Normal exam. His cholesterol is high. His LDL cholesterol is 205 and total cholesterol 271. MRI showed microvascular disease, no acute CVA. Patient is eager to be discharged home. He is not interested in staying any longer Previous tobacco and alcohol consumption, not current. At this time we will discharge patient home. Dual antiplatelets therapy as recommended by neurology for 21 days followed by aspirin daily. Lipitor 80 mg daily. Amlodipine 5 mg daily and Hyzaar 50/12.5 mg daily. His medications would need to be adjusted by PCP to keep systolic blood pressure between 135 and 145 I would recommend monitoring of his liver function while on Lipitor to be handled in the outpatient setting by PCP Hypertensive urgency which could be the primary cause of his encephalopathy or could be secondary to TIA. Patient admitted that he has not been taking his medications faithfully. Patient was on amlodipine 10 mg daily. I will discharge patient on amlodipine 5 mg daily and Hyzaar 50/12.5 mg daily Avoid beta-alee due to borderline bradycardia with a heart rate at 60 Medications titration will need to take place to achieve optimal control over an extended period of time to be handled by PCP. Counseling about compliance with medications. Right bundle branch block seen on EKG. Echocardiogram does not show cardiomyopathy or significant valvular disease. Patient may require stress test to rule out underlying CAD to be handled by PCP in the outpatient setting Patient has multiple medical issues as listed above and others that are not listed. All appear to be stable. Complete resolution of his symptoms. Normal exam. Patient wants to go home. At this time, I do not have any clear or strong clinical justification to extend inpatient hospitalization. Patient however will require close and frequent monitoring as well as additional work- up, investigation and therapeutic intervention that could take place from this point on post discharge. That is to prevent relapse, decompensation, rehospitalization and other medical implications. Discharge medications as listed are not final or set in stone. Primary care doctor and other out patient providers will need to titrate and adjust medications as soon as the first post discharge visit based on clinical progression, vitals signs, volume status and other related organs function. I instructed patient to ask her primary care doctor to obtain [facility] ([place], [place]) record entirely to address abnormalities seen on labs and imaging that I have and have not addressed during this hospitalization, follow-up on pending blood work, imaging and pathology is if available and to follow-up on needed medical care in the outpatient setting.
--- NOTE | 2025-06-26 09:50 | P.DS_ITS ---
DS: Providers Provider Date of admission: 06/25/25 13:56 Primary care physician: Jennifer Felton MD Consults: 06/25/25 Physical Therapy Eval and Treat Routine Reason for consultation: weakness 06/25/25 12:10 Consult to Telestroke Routine Reason for consultation: Aphasia 06/25/25 14:44 Consult to TeleNeurology Routine Reason for consultation: TIA Occupational Therapy Eval and Treat Routine Reason for consultation: TIA DS: Diagnosis Discharge Diagnosis (1) Brain TIA: Plan Mr. Patrick is a 60-year-old male who came in with transit expressive aphasia lasted for less than 5 minutes. TIA versus hypertensive encephalopathy. Hypertensive urgency. This could be the primary insult versus secondary adaptive reaction to a TIA. Emergency room physician I discussed this case with stroke team who recommended the dual antiplatelet therapy. CT head is negative. CTA of the neck does not show any significant vascular compromise. Mild calcification involving the carotid bulbs. CTA of the head showed moderate narrowing of M1 segment of the left MCA Telemetry monitoring does not show any cardiac dysrhythmia Echocardiogram does not show coagulopathy or significant valvular disease. EF is 65%. Mild diastolic dysfunction Complete resolution of his symptoms. Normal exam. His cholesterol is high. His LDL cholesterol is 205 and total cholesterol 271. MRI showed microvascular disease, no acute CVA. Patient is eager to be discharged home. He is not interested in staying any longer Previous tobacco and alcohol consumption, not current. At this time we will discharge patient home. Dual antiplatelets therapy as recommended by neurology for 21 days followed by aspirin daily. Lipitor 80 mg daily. Amlodipine 5 mg daily and Hyzaar 50/12.5 mg daily. His medications would need to be adjusted by PCP to keep systolic blood pressure between 135 and 145 I would recommend monitoring of his liver function while on Lipitor to be handled in the outpatient setting by PCP Hypertensive urgency which could be the primary cause of his encephalopathy or could be secondary to TIA. Patient admitted that he has not been taking his medications faithfully. Patient was on amlodipine 10 mg daily. I will discharge patient on amlodipine 5 mg daily and Hyzaar 50/12.5 mg daily Avoid beta-alee due to borderline bradycardia with a heart rate at 60 Medications titration will need to take place to achieve optimal control over an extended period of time to be handled by PCP. Counseling about compliance with medications. Right bundle branch block seen on EKG. Echocardiogram does not show cardiomyopathy or significant valvular disease. Patient may require stress test to rule out underlying CAD to be handled by PCP in the outpatient setting Patient has multiple medical issues as listed above and others that are not listed. All appear to be stable. Complete resolution of his symptoms. Normal exam. Patient wants to go home. At this time, I do not have any clear or strong clinical justification to extend inpatient hospitalization. Patient however will require close and frequent monitoring as well as additional work- up, investigation and therapeutic intervention that could take place from this point on post discharge. That is to prevent relapse, decompensation, rehospitalization and other medical implications. Discharge medications as listed are not final or set in stone. Primary care doctor and other out patient providers will need to titrate and adjust medications as soon as the first post discharge visit based on clinical progression, vitals signs, volume status and other related organs function. I instructed patient to ask her primary care doctor to obtain [facility] record entirely to address abnormalities seen on labs and imaging that I have and have not addressed during this hospitalization, follow-up on pending blood work, imaging and pathology is if available and to follow-up on needed medical care in the outpatient setting. DS: Summary Time Spent with Patient Time attestation: Total time spent providing and/or coordinating discharge services: Exam Constitutional Vital Signs, click to edit/add: Last Vital Signs Temp 97.5 F L 06/26/25 07:36 Pulse 76 06/26/25 08:04 Resp 20 06/26/25 07:36 BP 159/89 H 06/26/25 07:36 Pulse Ox 92 L 06/26/25 07:36 O2 Del Method Room Air 06/26/25 07:36 DS: Data Data Completed and Pending Labs on day of discharge: Labs from last 24 hours 06/26/25 06/25/25 05:22 10:33 WBC 5.0 5.6 RBC 5.37 5.73 Hgb 16.6 17.7 Hct 48.2 50.9 MCV 89.8 88.8 MCH 30.9 30.9 MCHC 34.4 34.8 RDW 12.5 12.1 Plt Count 247 265 MPV 11.2 10.7 Neut % (Auto) 48.1 47.6 Lymph % (Auto) 34.8 36.7 [place] % (Auto) 12.5 H 12.0 Eos % (Auto) 3.4 2.2 Baso % (Auto) 1.0 1.3 Neut # (Auto) 2.4 2.7 Lymph # (Auto) 1.7 2.1 [place] # (Auto) 0.6 0.7 Eos # (Auto) 0.2 0.1 Baso # (Auto) 0.1 0.1 Abs Immat Gran (auto) 0.01 0.01 Imm/Tot Granulo (auto) 0.2 0.2 Sodium 139 141 Potassium 3.7 3.8 Chloride 102 102 Carbon Dioxide 27.1 29.2 Anion Gap 13.6 13.6 BUN 15.0 11.0 Creatinine 0.93 0.85 Est GFR ( Amer) >60 >60 Est GFR (Non-Af Amer) >60 >60 BUN/Creatinine Ratio 16.1 12.9 Glucose 90 92 Calcium 9.1 9.5 Magnesium 2.3 Total Bilirubin 0.4 AST 20 ALT 34 Alkaline Phosphatase 86 Total Protein 7.6 Albumin 3.5 Globulin 4.1 Albumin/Globulin Ratio 0.9 Triglycerides 123 Cholesterol 271 H LDL Cholesterol, Calc 205.0 VLDL Cholesterol 24.6 HDL Cholesterol 42 Cholesterol/HDL Ratio 6.5 Discharge Plan Discharge Disposition: Home, Self-Care Condition: Good Discharge Medications: New amlodipine 5 mg Tablet 5 mg PO DAILY Qty: 30 2RF aspirin 81 mg tablet,delayed release (DR/EC) 81 mg PO DAILY Qty: 60 2RF clopidogrel [Plavix] 75 mg tablet 75 mg PO DAILY Qty: 21 0RF losartan-hydrochlorothiazide [Hyzaar] 50-12.5 mg tablet 1 tab PO DAILY Qty: 30 2RF atorvastatin [Lipitor] 80 mg tablet 80 mg PO QPM Qty: 60 1RF Discontinued amlodipine 10 mg tablet 10 mg PO DAILY Print Language: Bahamian Patient Instructions: Aspirin (By mouth), Amlodipine (By mouth), Atorvastatin (By mouth), Losartan/Hydrochlorothiazide (By mouth) (Hyzaar), Clopidogrel (By mouth) (Plavix), Transient Ischemic Attack (DC) Activity Restrictions/Additional Instructions: I may not have addressed or treated all of your medical illnesses or the abnormal blood work or imaging studies during this hospitalization. Please ask your primary care provider to obtain [facility] records entirely to follow up on all of the abnormal physical, laboratory, and imaging findings that I have not addressed. Please return back to the emergency room or seek medical attention if your symptoms worsen or return. Discharging you from [facility] does not mean that your medical care ends here and now. You may still need additional monitoring, work up, investigation, and treatment plan to be handled from this point on by out patient providers including your primary care provider and specialists. Discharge medications as listed are not final or set in stone. Primary care doctor and other out patient providers will need to titrate and adjust medications as soon as the first post discharge visit based on clinical progression, vitals signs, volume status and other related organs function. Take Plavix (clopidogrel ) 1 tablet daily for 21 days. I would recommend that your primary care doctor arrange for stress test for the heart within the next few weeks. Your cholesterol is on the high side. I would recommend low-fat diet. For any medication question, please contact your retail pharmacist or your primary care provider. Thank you. Forms: Portal Instructions Follow Up Appointments: Call on Saturday to follow up with your PCP Dr Felton [phone] next week
--- NOTE | 2025-06-28 08:40 | PC.NURSE ---
Follow up appt with Dr. Felton on 06/29 @ 1pm
--- NOTE | 2025-06-28 11:53 | CM.DCFOLLOWU ---
1st attempt, no answer, 06/28
--- NOTE | 2025-06-28 13:29 | CM.DCFOLLOWU ---
Person spoke with:Sabin How are you feeling? Better How is your pain? No pain Did you understand your discharge instructions? Yes Do you have any questions about your discharge instructions? No Were you given any prescriptions at discharge? Yes Were you able to get your prescriptions filled? Yes Do you understand how to take your medications as ordered? Yes Do you have any questions about your follow up appointment and do you plan to keep your follow up appointment? No questions. The patient was notified that he has an appt at 1 pm with on 06/29. Is there anything else that you would like to discuss? No Questions/Comments/Concerns/Other:
== END 2025-06-26 10:00 | disposition home or self-care (01) ==
LOC: ER 13:58 → MS 14:03
PROVIDERS: Admitting Provider Internal Medicine; Emergency Provider Emergency Medicine; PCP Family Medicine; Visit Provider Internal Medicine
DX: G45.9 Transient cerebral ischemic attack, unspecified (principal); I67.4 Hypertensive encephalopathy; I10 Essential (primary) hypertension; Z87.891 Personal history of nicotine dependence; I16.0 Hypertensive urgency; T46.1X6A Underdosing of calcium-channel blockers, initial encounter; Z91.148 Patient's other noncompliance with medication regimen for other reason; I45.10 Unspecified right bundle-branch block
CPT/HCPCS: 36415; 70030; 70450; 70496; 70498; 70551; 71045; 80048; 80053; 80061; 83735; 85025; 93005; 93306; 93356; 96374; 96375; 96376; 97161; 99285; G0378; J0360; J1920; Q9967